=== PATIENT | male | born 1935 | race Two or more races ===

== ENCOUNTER 2019-05-23 12:15 | Inpatient (IN) | payer MEDICARE, OTHER ==
[~2019-05-23] VITALS: Ht 170.2 cm; Wt 49.9 kg
--- NOTE | 2019-05-23 12:20 | NUR ---
[id number] FROM [facility] FOR NOTED O2 DESATURATION. PATIENT OPENS EYES, NON-VERBAL. BREATHING EVEN AND UNLABORED, NO SOB NOTED, CHANGED INTO GOWN, ATTACHED TO THE PARTS ROOM ASSOCIATE. SPO2 ON THE MONITOR SHOWS [address] HONG AT BEDSIDE FOR EVAL.
[2019-05-23 12:58] LABS: ABG OXYGEN SATURATION 93.2 % (92.0-98.5); ABG PCO2 39.8 mmHg (35.0-45.0); ABG PH 7.423 (7.350-7.450); ABG PO2 76.9 mmHg (75.0-100.0); AaDO2 25.2 mmHg; COHb 0.3 % (0.5-1.5); MetHb 0.4 % (0.0-1.5); O2Hb 92.5 % (94.0-97.0); SITE, ABG Left Radial; VENT MODE, BG ROOM AIR
[2019-05-23 13:28] LABS: BASOPHILS # (AUTO) 0.1 /CMM (0.0-0.2); BASOPHILS % (AUTO) 0.7 % (0.0-2.0); EOSINOPHILS % (AUTO) 0.2 % (0.0-6.0); HEMATOCRIT 38 % (39-51); LYMPHOCYTES # (AUTO) 2.2 /CMM (0.8-4.8); LYMPHOCYTES % (AUTO) 10.6 % (20.0-44.0); MEAN CORPUSCULAR HGB CONC 31 g/dl (31.0-36.0); MEAN CORPUSCULAR VOLUME 70 fL (80-96); MONOCYTES # (AUTO) 1.5 /CMM (0.1-1.30); MONOCYTES % (AUTO) 7.6 % (2.0-12.0); NEUTROPHILS # (AUTO) 16.5 /CMM (1.8-8.9); NEUTROPHILS % (AUTO) 80.9 % (43.0-81.0); PLATELET COUNT (AUTO) 295 /CMM (150-450); RED BLOOD CELL COUNT(AUTO) 5.48 MIL/uL (4.5-6.0); WHITE BLOOD COUNT (AUTO) 20.4 K/uL (4.3-11.0)
[2019-05-23] MEDS ORDERED: IPRA0.2S49 IH (13:28)
[2019-05-23] MEDS ORDERED: BISA10SU61 RC (13:28)
[2019-05-23] MEDS ORDERED: DIVA-78 PO (13:28)
[2019-05-23] MEDS ORDERED: MULT-134 PO (13:28)
[2019-05-23] MEDS ORDERED: MAGN400O6 PO (13:28)
[2019-05-23] MEDS ORDERED: ACET-868 PO ×2 (13:28)
[2019-05-23] MEDS ORDERED: AMIN887L PO (13:28)
[2019-05-23] MEDS ORDERED: TIOT18CA3 IH (13:28)
[2019-05-23] MEDS ORDERED: DOCU-141 PO (13:28)
[2019-05-23] MEDS ORDERED: NA P133E RC (13:28)
[2019-05-23] MEDS ORDERED: QUET25TA PO (13:28)
[2019-05-23] MEDS ORDERED: ASCO500C16 PO (13:28)
[2019-05-23] MEDS ORDERED: SENN-175 PO (13:28)
[2019-05-23] MEDS ORDERED: ALBU2.5V13 IH (13:28)
[2019-05-23 13:39] LABS: CALCIUM, SERUM 9.8 mg/dL (8.5-10.1); CARBON DIOXIDE 27 mmol/L (21-32); CHLORIDE 113 mmol/L (98-107); CREATININE 1.2 mg/dL (0.6-1.3); GLUCOSE 129 mg/dL (74-106); POTASSIUM 4.3 mmol/L (3.5-5.1); SODIUM SERUM 150 mmol/L (136-145); UREA NITROGEN, BLOOD 60 mg/dL (7-18)
--- NOTE | 2019-05-23 13:45 | NUR ---
UNABLE TO OBTAIN URINE AT THIS TIME, AWARE.
[2019-05-23 13:47] LABS: ALANINE AMINOTRANSFERASE 18 U/L (12-78); ALBUMIN 2.8 g/dL (3.4-5.0); ALKALINE PHOSPHATASE 75 U/L (46-116); ASPARTATE AMINOTRANSFERASE 31 U/L (15-37); BILIRUBIN,TOTAL 0.7 mg/dL (0.2-1.0); TOTAL PROTEIN, SERUM 8.1 g/dL (6.4-8.2)
[2019-05-23] MEDS ORDERED: CEFTRIAXONE 1GM BAG (ER ONLY) 50 ML IV ONE (13:56)
[2019-05-23] MEDS ORDERED: CEFTRIAXONE 1GM BAG (ER ONLY) 1 GM/50 ML PIGGYBACK IV ONE (14:00)
[2019-05-23] MEDS ORDERED: IV NS 0.9% 1,000 ML IV ONE (14:00)
[2019-05-23 14:03] LABS: BILIRUBIN,DIRECT 0.2 mg/dL (0.0-0.2)
--- NOTE | 2019-05-23 15:08 | NUR ---
Patient is resting comfortably in bed with eyes closed. Easily aroused. VSS
[2019-05-23] MEDS ORDERED: IV 1/2NS 1000 ML 1,000 ML IV PRN (15:19)
--- NOTE | 2019-05-23 15:24 | NUR ---
REPORT GIVEN TO GALLO LUO FOR [facility].
[2019-05-23] MEDS ORDERED: HYDROCODONE/APAP 5/325MG 1 EACH TABLET PO PRN (15:30)
[2019-05-23] MEDS ORDERED: BISACODYL SUPP (10 MG) 10 MG/SUPP.RECT SUPP.RECT RC PRN (15:30)
[2019-05-23] MEDS ORDERED: MAG HYDROX/AL HYDROX/SIMETH 30 ML UDC PO PRN (15:30)
[2019-05-23] MEDS ORDERED: NA PHOS,M-B/NA PHOS,DI-BA 1 EA ENEMA RC PRN (15:30)
[2019-05-23] MEDS ORDERED: Z GUARD REMEDY 2 OZ OINT TP PRN (15:30)
[2019-05-23] MEDS ORDERED: ALBUTEROL FS 2.5 MG/0.5 ML VIAL.NEB NEB PRN (15:30)
[2019-05-23] MEDS ORDERED: IPRATROPIUM NEB FS 0.5 MG/2.5 ML AMPUL.NEB IH PRN (15:30)
[2019-05-23] MEDS ORDERED: ALBUTEROL FS 2.5 MG/0.5 ML VIAL.NEB IH PRN (15:30)
[2019-05-23] MEDS ORDERED: MAGNESIUM HYDROXIDE 30 ML UDC PO PRN ×2 (15:30)
[2019-05-23] MEDS ORDERED: ONDANSETRON HCL/PF 4 MG/2 ML VIAL IVP PRN (15:30)
[2019-05-23] MEDS ORDERED: ACETAMINOPHEN 325 MG TABLET PO PRN ×2 (15:30)
--- NOTE | 2019-05-23 15:56 | NUR ---
PATIENT TRANSFERRED TO ROOM 322-1 VIA ACLS PROTOCOL. NO DISTRESS NOTED.
[2019-05-23 16:00] VITALS: BP 97/64
--- NOTE | 2019-05-23 16:00 | NUR ---
m/s data integrity consultant: admission admitted this 84 years old male pt from [facility] with dx: copd exacerbation. no s/s of resp. distress. on room air, satting at 98%. vss. pt doesn't say much, appears to be alert to name only with confusion and disorientation. when pt repositioned, pt tends to grab the siderails. reality orientation provided prn. body check done and completed. wound consult triggered. in no apparent distress noted. will continue to monitor.
--- NOTE | 2019-05-23 17:00 | NUR ---
m/s case checker: notes dinner served. hob elevated. assisted with his meal by incident response coordinator, pt able to swallow thin liquid, but pt refused food. kept comfortable. no distress noted. will continue to monitor.
[2019-05-23] MEDS: DIVALPROEX SODIUM 500 MG TABLET.DR PO SCH (17:31)
[2019-05-23] MEDS: QUETIAPINE FUMARATE 25 MG TABLET PO SCH (17:31)
[2019-05-23] MEDS: DOCUSATE SODIUM 100 MG CAPSULE PO SCH (17:31)
--- NOTE | 2019-05-23 17:38 | NUR ---
m/s mobile ui designer: notes [facility] notified, spoke to dana and ask his diet, immunizations, and code status. per dana (rn), pt is a full code, on a mechanical soft fine chopped, thin liquid diet, and family refuses vaccinations when pt was admitted in march 2019. chart updated and diet change.
[2019-05-23] MEDS: methylPREDNISolone SOD SUCC 125 MG/2ML VIAL IV SCH ×2 (17:43→21:56)
[2019-05-23] MEDS: ENOXAPARIN SODIUM 40 MG/0.4 ML DISP.SYRIN SQ SCH (17:44)
[2019-05-23] MEDS: PROSOURCE / PROSTAT (PYXIS) 30 ML UDC PO SCH (17:55)
--- NOTE | 2019-05-23 18:00 | NUR ---
m/s lining feller: notes dr. loyd notified and made aware re: repeat lactic acid=2.2 with no new order.
--- NOTE | 2019-05-23 18:26 | NUR ---
m/s railroad brake repairer: notes in bed awake. no distress noted. needs attended. iv fluids infusing well. call light within reach. will monitor.
--- NOTE | 2019-05-23 19:05 | NUR ---
RN MS OPENING NOTES RECEIVED PATIENT IN BED , NON VERBAL, RESPIRATIONS EVEN AND UNLABORED WITH EQUAL RISE AND FALL OF CHEST, SP02 RA @99%. NO SOB PRESENT, IV SITE TO RIGHT FAA #18 G INTACT AND PATNET NO REDNESS, NO INFILTRATION PRESENT, IVF RUNNING ORDERED, SAFETY PRECAUTIONS IN PLACE LOW BED AND LOCKED, ALL NEEDS ATTENDED AT THIS TIME, BED ALARM IN PLACE, PATIENT REPOSITIONED, HIPS AND HEELS FLOATED, REMAINS DRY WILL CONTINUE TO MONITOR AND ATTEND TO NEEDS.
--- NOTE | 2019-05-23 19:10 | NUR ---
m/s jigsaw operator: notes bedside report given to javy (rn) for continuity of care.
--- NOTE | 2019-05-23 19:10 | NUR ---
RN MS NOTES SPOKE TO DR. OSULLIVAN REGARDING LACTIC ACID OF 2.2 , NO FURTHER ORDERS.
[2019-05-23 20:00] VITALS: BP 109/63
[2019-05-23] MEDS: SENNOSIDES 8.6 MG TABLET PO SCH ×2 (21:55→22:00)
--- NOTE | 2019-05-23 22:04 | NUR ---
RN MS NOTES UNABLE TO GIVE SCHEDULED DOSE OF SENNA PATIENT NOTED NONVERBAL SLEEPING, ATTEMPTED TO GIVE AND DID NOT WANT TO OPEN MOUTH OR SWALLOW MEDICATION.
[2019-05-24] MEDS: IPRATROPIUM NEB FS 0.5 MG/2.5 ML AMPUL.NEB NEB SCH ×4 (00:48→20:31)
[2019-05-24] MEDS: methylPREDNISolone SOD SUCC 125 MG/2ML VIAL IV SCH ×3 (05:29→21:16)
--- NOTE | 2019-05-24 06:23 | NUR ---
RN MS CLOSING NOTES PATIENT IN BED , NON VERBAL, RESPIRATIONS EVEN AND UNLABORED WITH EQUAL RISE AND FALL OF CHEST, SP02 RA @99%. NO SOB PRESENT THROUGHOUT SHIFT, IV SITE TO RIGHT FA #18 G INTACT AND PATENT NO REDNESS, NO INFILTRATION PRESENT, IVF RUNNING ORDERED, SAFETY PRECAUTIONS IN PLACE LOW BED AND LOCKED, ALL NEEDS ATTENDED AT THIS TIME, BED ALARM IN PLACE, PATIENT REPOSITIONED AND KEPT CLEAN ,AFFECTED WOUND SITES FLOATED, HIPS AND HEELS FLOATED, REMAINS DRY WILL CONTINUE TO MONITOR AND ATTEND TO NEEDS AND ENDORSE TO NEXT SHIFT. FLUIDS OFFERED HOWEVER PATIENT DID NOT WANT ANY.
[2019-05-24] MEDS ORDERED: IV 1/2NS 1000 ML 1,000 ML IV PRN (07:53)
--- NOTE | 2019-05-24 08:20 | NUR ---
ms rn received on bed, awake,non verbal, no distress noted, respirations even and unlabored,no sob noted, will monitor patient's condition.
[2019-05-24 08:44] LABS: BASOPHILS % (AUTO) 0.2 % (0.0-2.0); HEMATOCRIT 33 % (39-51); HEMOGLOBIN 10.4 g/dL (13.5-17.5); LYMPHOCYTES # (AUTO) 1.3 /CMM (0.8-4.8); LYMPHOCYTES % (AUTO) 15.2 % (20.0-44.0); MEAN CORPUSCULAR HGB CONC 31 g/dl (31.0-36.0); MEAN CORPUSCULAR VOLUME 70 fL (80-96); MONOCYTES # (AUTO) 0.2 /CMM (0.1-1.30); MONOCYTES % (AUTO) 1.9 % (2.0-12.0); NEUTROPHILS % (AUTO) 82.7 % (43.0-81.0); PLATELET COUNT (AUTO) 232 /CMM (150-450); RED BLOOD CELL COUNT(AUTO) 4.78 MIL/uL (4.5-6.0); WHITE BLOOD COUNT (AUTO) 8.5 K/uL (4.3-11.0)
[2019-05-24 09:17] LABS: CALCIUM, SERUM 9.3 mg/dL (8.5-10.1); CREATININE 1.1 mg/dL (0.6-1.3); MAGNESIUM 2.4 mg/dL (1.8-2.4); PHOSPHORUS 4.7 mg/dL (2.5-4.9); POTASSIUM 4.3 mmol/L (3.5-5.1)
--- NOTE | 2019-05-24 09:30 | NUR ---
ms lee breakfast served,feeder, due meds given,tolerated well.
[2019-05-24] MEDS: DIVALPROEX SODIUM 500 MG TABLET.DR PO SCH ×3 (10:19→17:25)
[2019-05-24] MEDS: DOCUSATE SODIUM 100 MG CAPSULE PO SCH ×2 (10:19→17:25)
[2019-05-24] MEDS: ASCORBIC ACID 500 MG TABLET PO SCH (10:19)
[2019-05-24] MEDS: QUETIAPINE FUMARATE 25 MG TABLET PO SCH ×2 (10:19→17:25)
[2019-05-24] MEDS: MULTIVIT W/MINERALS 1 TAB TABLET PO SCH (10:19)
[2019-05-24] MEDS: PROSOURCE / PROSTAT (PYXIS) 30 ML UDC PO SCH ×3 (10:21→17:00)
[2019-05-24 10:29] VITALS: BP 119/61
[2019-05-24] MEDS: CEFTRIAXONE 1 G in IV D5W 50 ML IV SCH (14:16)
--- NOTE | 2019-05-24 15:45 | NUR ---
ms rn on bed, no distress noted.
[2019-05-24] MEDS: ENSURE ENLIVE 237 ML LIQUID (VANILLA) PO SCH (17:00)
[2019-05-24 18:10] VITALS: BP 110/65
--- NOTE | 2019-05-24 18:20 | NUR ---
ms rn on bed, no distress noted.
--- NOTE | 2019-05-24 19:00 | NUR ---
RN MS OPENING NOTES RECEIVED PATIENT IN BED , NON VERBAL, RESPIRATIONS EVEN AND UNLABORED WITH EQUAL RISE AND FALL OF CHEST, SP02 RA @98%. NO SOB PRESENT, IV SITE TO RIGHT FA #18 G INTACT AND PATENT NO REDNESS, NO INFILTRATION PRESENT, IVF RUNNING ORDERED, SAFETY PRECAUTIONS IN PLACE LOW BED AND LOCKED, ALL NEEDS ATTENDED AT THIS TIME, BED ALARM IN PLACE, PATIENT REPOSITIONED, HIPS AND HEELS FLOATED, REMAINS DRY WILL CONTINUE TO MONITOR AND ATTEND TO NEEDS.
[2019-05-24 20:00] VITALS: BP 103/54
[2019-05-24 20:28] VITALS: BP 96/48
[2019-05-24] MEDS: SENNOSIDES 8.6 MG TABLET PO SCH (21:17)
[2019-05-24] MEDS: ENOXAPARIN SODIUM 40 MG/0.4 ML DISP.SYRIN SQ SCH (21:18)
[2019-05-25] MEDS: IPRATROPIUM NEB FS 0.5 MG/2.5 ML AMPUL.NEB NEB SCH ×5 (01:30→20:18)
[2019-05-25] MEDS: methylPREDNISolone SOD SUCC 125 MG/2ML VIAL IV SCH ×3 (05:01→21:36)
--- NOTE | 2019-05-25 06:54 | NUR ---
RN MS CLOSING NOTES PATIENT IN BED , NON VERBAL, RESPIRATIONS EVEN AND UNLABORED WITH EQUAL RISE AND FALL OF CHEST, SP02 RA @98%. NO SOB PRESENT, IV SITE TO RIGHT FA #18 G INTACT AND PATENT NO REDNESS, NO INFILTRATION PRESENT, IVF RUNNING ORDERED, SAFETY PRECAUTIONS IN PLACE LOW BED AND LOCKED, ALL NEEDS ATTENDED AT THIS TIME, BED ALARM IN PLACE, PATIENT REPOSITIONED, HIPS AND HEELS FLOATED, REMAINS DRY WILL CONTINUE TO MONITOR AND ATTEND TO NEEDS.PATIENT HAD A LARGE VOID. WILL ENDORSE TO NEXT SHIFT.
--- NOTE | 2019-05-25 07:24 | NUR ---
MS/RN OPENING NOTE Patient received resting in bed, A/O x1, showing no signs odf acute distress or SOB, saturating well on RA. IV line is clean and intact running 1/2 NS @ 100ml/hr. Patient has no complaints at this time. Skin assessed, will turn q2 hours, wound tx, and extremities offloaded. Bed is in lowest position, side rails x3 in upright position, bed alarm on. Safety, fall and aspiration precautions enforced. Will continue with plan of care.
[2019-05-25 07:28] LABS: MAGNESIUM 2.3 mg/dL (1.8-2.4); PHOSPHORUS 3.4 mg/dL (2.5-4.9); POTASSIUM 3.6 mmol/L (3.5-5.1)
[2019-05-25 08:00] VITALS: BP 128/69
[2019-05-25] MEDS: ENSURE ENLIVE 237 ML LIQUID (VANILLA) PO SCH ×3 (08:30→16:20)
[2019-05-25] MEDS: PROSOURCE / PROSTAT (PYXIS) 30 ML UDC PO SCH ×3 (08:30→16:20)
[2019-05-25] MEDS: QUETIAPINE FUMARATE 25 MG TABLET PO SCH ×2 (08:30→16:20)
[2019-05-25] MEDS ORDERED: IV D5W 1,000 ML IV PRN (08:30)
[2019-05-25] MEDS: MULTIVIT W/MINERALS 1 TAB TABLET PO SCH (08:30)
[2019-05-25] MEDS: DOCUSATE SODIUM 100 MG CAPSULE PO SCH ×2 (08:30→16:21)
[2019-05-25] MEDS: ASCORBIC ACID 500 MG TABLET PO SCH (08:30)
[2019-05-25] MEDS: DIVALPROEX SODIUM 500 MG TABLET.DR PO SCH ×3 (08:30→16:20)
--- NOTE | 2019-05-25 12:33 | NUR ---
WOUND CARE CONSULT: PT FOLLOWED BY PLASTIC SURGERY TEAM FOR WOUND CARE. DEFER TO SURGICAL TEAM FOR WOUND TREATMENT PLAN. DISCUSSED SKIN PROTECTION WITH NURSING STAFF. PT ON ISOFLEX LOW AIRLOSS BED. WILL SEE PRN.
[2019-05-25 12:52] LABS: BASOPHILS % (AUTO) 0.1 % (0.0-2.0); HEMATOCRIT 34 % (39-51); HEMOGLOBIN 10.5 g/dL (13.5-17.5); LYMPHOCYTES # (AUTO) 1.2 /CMM (0.8-4.8); LYMPHOCYTES % (AUTO) 12.4 % (20.0-44.0); MEAN CORPUSCULAR HGB CONC 31 g/dl (31.0-36.0); MEAN CORPUSCULAR VOLUME 70 fL (80-96); MONOCYTES # (AUTO) 0.6 /CMM (0.1-1.30); MONOCYTES % (AUTO) 5.8 % (2.0-12.0); NEUTROPHILS # (AUTO) 8.1 /CMM (1.8-8.9); NEUTROPHILS % (AUTO) 81.7 % (43.0-81.0); PLATELET COUNT (AUTO) 210 /CMM (150-450); RED BLOOD CELL COUNT(AUTO) 4.77 MIL/uL (4.5-6.0); WHITE BLOOD COUNT (AUTO) 9.9 K/uL (4.3-11.0)
[2019-05-25] MEDS: CEFTRIAXONE 1 G in IV D5W 50 ML IV SCH (14:28)
[2019-05-25 16:00] VITALS: BP 121/52
--- NOTE | 2019-05-25 19:18 | NUR ---
MS/RN CLOSING NOTE Patient is resting in bed, A/O x1, showing no signs of acute distress or SOB, saturating 99% on RA. Breathing treatment done as ordered by RT. IV line in RAC is clean and intact running D5 @ 125ml/hr. Patient has no complaints at this time. Skin care done as ordered, turned q2 hours, and extremities offloaded. Patient urinated in diaper x3, no bowel movement this shift. All patient needs met, all due meds given. Bed is in lowest position, side rails x3 in upright position, bed alarm on. Safety, fall and aspiration precautions enforced. Will endorse to night monitor.
[2019-05-25 19:30] VITALS: BP 102/48
--- NOTE | 2019-05-25 19:30 | NUR ---
MS RN NOTES PATIENT IN BED ASLEEP, ALERT AND ORIENTED X1, NONVERBAL. BREATHING EVEN AND UNLABORED ON ROOM AIR. SHOWS NO SIGNS OF RESPIRATORY DISTRESS, NO ACUTE PAIN. IV ON AC RUNNING D5 NS AT 125ML/HR. CLEAN DRY AND INTACT, SHOWS NO SIGNS OF INFILTRATION, NO REDNESS. SAFETY PRECAUTIONS IN PLACE. BED IN LOWEST POSITION, LOCKED, AND CALL LIGHT KEPT WITHIN REACH. WILL CONTINUE TO MONITOR.
[2019-05-25 20:00] VITALS: BP 100/72
[2019-05-25] MEDS: SENNOSIDES 8.6 MG TABLET PO SCH (21:36)
[2019-05-25] MEDS: ENOXAPARIN SODIUM 40 MG/0.4 ML DISP.SYRIN SQ SCH (21:38)
[2019-05-26] MEDS: IPRATROPIUM NEB FS 0.5 MG/2.5 ML AMPUL.NEB NEB SCH ×2 (01:16→07:56)
[2019-05-26 04:00] VITALS: BP 99/57
[2019-05-26] MEDS: methylPREDNISolone SOD SUCC 125 MG/2ML VIAL IV SCH ×2 (04:20→12:29)
--- NOTE | 2019-05-26 06:46 | NUR ---
MS RN NOTES PATIENT IN BED ASLEEP, ALERT AND ORIENTED X1, NONVERBAL. BREATHING EVEN AND UNLABORED ON ROOM AIR. SHOWS NO SIGNS OF RESPIRATORY DISTRESS, NO ACUTE PAIN. IV ON R AC RUNNING D5 NS AT 125ML/HR. CLEAN DRY AND INTACT, SHOWS NO SIGNS OF INFILTRATION, NO REDNESS. ALL DUE MEDICATIONS GIVEN. SAFETY PRECAUTIONS IN PLACE. BED IN LOWEST POSITION, LOCKED, AND CALL LIGHT KEPT WITHIN REACH. WILL ENDORSE TO ONCOMING NURSE.
--- NOTE | 2019-05-26 07:43 | NUR ---
MS/RN OPENING NOTE Patient received resting in bed, A/O x1, showing no signs of acute distress or SOB, saturating well on RA. IV line is clean and intact running 1/2 NS @ 100ml/hr. Patient has no complaints at this time. Skin assessed, will turn q2 hours, will implement skin treatment, and extremities offloaded. Bed is in lowest position, side rails x3 in upright position, bed alarm on. Safety, fall and aspiration precautions enforced. Will continue with plan of care.
[2019-05-26 08:00] VITALS: BP 103/53
[2019-05-26 08:26] LABS: CALCIUM, SERUM 8.6 mg/dL (8.5-10.1); MAGNESIUM 2.3 mg/dL (1.8-2.4); PHOSPHORUS 3.4 mg/dL (2.5-4.9); POTASSIUM 4.8 mmol/L (3.5-5.1)
[2019-05-26] MEDS: ASCORBIC ACID 500 MG TABLET PO SCH (08:34)
[2019-05-26] MEDS: MULTIVIT W/MINERALS 1 TAB TABLET PO SCH (08:34)
[2019-05-26] MEDS: QUETIAPINE FUMARATE 25 MG TABLET PO SCH (08:34)
[2019-05-26] MEDS: DIVALPROEX SODIUM 500 MG TABLET.DR PO SCH ×2 (08:34→12:29)
[2019-05-26] MEDS: ENSURE ENLIVE 237 ML LIQUID (VANILLA) PO SCH ×2 (08:35→12:29)
[2019-05-26] MEDS: PROSOURCE / PROSTAT (PYXIS) 30 ML UDC PO SCH ×2 (08:35→12:29)
[2019-05-26] MEDS ORDERED: DOCUSATE SODIUM LIQ 100 MG/10 ML UDC PO SCH (09:00)
[2019-05-26] MEDS ORDERED: LEVO500T75 PO (10:34)
[2019-05-26] MEDS ORDERED: PRED20TA PO (10:34)
[2019-05-26 13:34] LABS: BASOPHILS % (AUTO) 0.1 % (0.0-2.0); HEMATOCRIT 33 % (39-51); HEMOGLOBIN 10.5 g/dL (13.5-17.5); LYMPHOCYTES # (AUTO) 1.5 /CMM (0.8-4.8); LYMPHOCYTES % (AUTO) 12.6 % (20.0-44.0); MEAN CORPUSCULAR HGB CONC 31 g/dl (31.0-36.0); MEAN CORPUSCULAR VOLUME 70 fL (80-96); MONOCYTES # (AUTO) 0.7 /CMM (0.1-1.30); MONOCYTES % (AUTO) 5.9 % (2.0-12.0); NEUTROPHILS # (AUTO) 9.6 /CMM (1.8-8.9); NEUTROPHILS % (AUTO) 81.4 % (43.0-81.0); PLATELET COUNT (AUTO) 202 /CMM (150-450); WHITE BLOOD COUNT (AUTO) 11.7 K/uL (4.3-11.0)
--- NOTE | 2019-05-26 13:50 | NUR ---
MS/ELECTRIC ARC FURNACE OPERATOR NOTE Patient is medically stable for discharge, is in no acute distress, no SOB noted, saturating 99% on RA. Vital signs WNL. Patient is A/O x1, confused. SKin assessed, photos taken and placed in chart. ID band removed, IV removed. Patient kept clean and dry throughout shift, all patient needs met, all due meds given. Patient has all belongings with them. Report given to Sandro at [facility]. DC folder given to EMS. Patient left unit on [facility] with EMS via ambulance.
== END 2019-05-26 13:20 | DRG 189 ==
LOC: ER 12:19 → TELE 15:24 → MED 15:34
PROVIDERS: ADMIT Internal Medicine
DX: J96.01 Acute respiratory failure with hypoxia (principal); N17.0 Acute kidney failure with tubular necrosis; G93.41 Metabolic encephalopathy; J44.1 Chronic obstructive pulmonary disease with (acute) exacerbation; E87.2 Acidosis; E87.0 Hyperosmolality and hypernatremia; E46 Unspecified protein-calorie malnutrition; F03.90 Unspecified dementia, unspecified severity, without behavioral disturbance, psychotic disturbance, mood disturbance, and anxiety; R53.1 Weakness; F32.9 Major depressive disorder, single episode, unspecified; M62.50 Muscle wasting and atrophy, not elsewhere classified, unspecified site; L89.156 Pressure-induced deep tissue damage of sacral region; D72.829 Elevated white blood cell count, unspecified; D50.9 Iron deficiency anemia, unspecified; E86.1 Hypovolemia
CPT/HCPCS: 36415; 36600; 71045-TC; 80048-TC; 80076-TC; 80164-TC; 83605-TC; 83735-TC; 84100-TC; 84484-TC; 85025-TC; 85730-TC; 86850-TC; 87040-TC; 87081-TC; G0378; J0696; J1650; J2930; J3490; J7030; J7060